=== PATIENT | female | born 1990 | race Caucasian/White ===

== ENCOUNTER 2016-11-16 22:49 | Emergency (ER) | payer OTHER ==
[~2016-11-16] VITALS: Ht 167.6 cm; Wt 81.6 kg
[~2016-11-16 22:49] MED LIST: ACETAMINOPHEN-H1 TA2 PO; AMOXIL500 MG PO; ASPIRIN ADULT L81 M2 PO; Augmentin Xr 101 TER PO; BACTRIM DS 8001 TAB PO; HEPARIN10000 UNIT IM; NKHM; ZITHROMAX Z PA250 MG PO
[2016-11-16] MEDS ORDERED: PENICILLIN-VK500 M1 PO (23:04)
== END 2016-11-17 00:12 | disposition home or self-care (01) ==
LOC: ED 22:49
DX: K08.89 Other specified disorders of teeth and supporting structures (principal); F17.200 Nicotine dependence, unspecified, uncomplicated; Z86.73 Personal history of transient ischemic attack (TIA), and cerebral infarction without residual deficits